=== PATIENT | male | born 1960 | race Caucasian/White ===

== ENCOUNTER 2016-05-18 09:51 | Outpatient (CLI) | payer MEDICAID | END 2016-05-18 09:52 | disposition home or self-care (01) | DX: E11.9 Type 2 diabetes mellitus without complications (principal) ==

== ENCOUNTER 2016-08-09 21:16 | Emergency (ER) | payer MEDICAID ==
[2016-08-09] MEDS ORDERED: KETOROLAC 60 MG/2 ML VIAL IM STA (23:00)
[2016-08-09] MEDS ORDERED: KETOROLAC 60 MG/2 ML VIAL ONE (23:07)
[2016-08-10] MEDS ORDERED: oxyCODONE/ACET 5/325 Prepack 4 PO STA (01:15)
[2016-08-10] MEDS ORDERED: CYCLOBENZAPRINE 10 MG Prepack 2 PO PRN (01:15)
[2016-08-10] MEDS ORDERED: CYCLOBENZAPRINE 10 MG Prepack 2 PO ONE (01:18)
[2016-08-10] MEDS ORDERED: oxyCODONE/ACET 5/325 Prepack 4 PO ONE (01:18)
== END 2016-08-10 01:27 | disposition home or self-care (01) ==
DX: M54.9 Dorsalgia, unspecified (principal); I10 Essential (primary) hypertension; E78.00 Pure hypercholesterolemia, unspecified; E11.42 Type 2 diabetes mellitus with diabetic polyneuropathy; G47.30 Sleep apnea, unspecified; I25.10 Atherosclerotic heart disease of native coronary artery without angina pectoris; F41.9 Anxiety disorder, unspecified; F31.9 Bipolar disorder, unspecified; K21.9 Gastro-esophageal reflux disease without esophagitis; Z87.891 Personal history of nicotine dependence; Z79.52 Long term (current) use of systemic steroids; Z95.5 Presence of coronary angioplasty implant and graft; Z79.82 Long term (current) use of aspirin; Z79.84 Long term (current) use of oral hypoglycemic drugs

== ENCOUNTER 2016-08-13 12:08 | Outpatient (CLI) | payer MEDICAID | END 2016-08-13 12:09 | disposition home or self-care (01) | DX: I25.10 Atherosclerotic heart disease of native coronary artery without angina pectoris (principal); R10.9 Unspecified abdominal pain; M25.50 Pain in unspecified joint; M54.5 Low back pain ==

== ENCOUNTER 2016-08-13 12:36 | Outpatient (CLI) | payer MEDICAID | END 2016-08-13 23:59 | disposition home or self-care (01) | DX: R10.9 Unspecified abdominal pain (principal); M25.50 Pain in unspecified joint; M54.5 Low back pain ==

== ENCOUNTER 2016-09-16 09:06 | Outpatient (CLI) | payer MEDICAID | END 2016-09-16 09:07 | disposition home or self-care (01) | DX: R10.12 Left upper quadrant pain (principal) ==

== ENCOUNTER 2016-09-17 08:51 | Outpatient (CLI) | payer MEDICAID ==
[2016-09-17] MEDS ORDERED: BARIUM SULFATE 1,900 ML BOTTLE PO SCH (11:00)
== END 2016-09-17 08:52 | disposition home or self-care (01) ==
DX: R10.12 Left upper quadrant pain (principal)
CPT/HCPCS: 74280; A9270

== ENCOUNTER 2016-09-28 18:05 | Outpatient (CLI) | payer MEDICAID | END 2016-09-28 18:06 | disposition home or self-care (01) | DX: M51.34 Other intervertebral disc degeneration, thoracic region (principal); M51.36 Other intervertebral disc degeneration, lumbar region ==

== ENCOUNTER 2016-11-22 10:05 | Outpatient (CLI) | payer MEDICAID | END 2016-11-22 10:06 | disposition home or self-care (01) | DX: E11.9 Type 2 diabetes mellitus without complications (principal) ==

== ENCOUNTER 2017-03-17 13:59 | Outpatient (CLI) | payer MEDICAID | END 2017-03-17 14:00 | disposition home or self-care (01) | LOC: SC 13:59 | PROVIDERS: ATTEND Nurse Practitioner Family | DX: G47.33 Obstructive sleep apnea (adult) (pediatric) (principal) | CPT/HCPCS: 99212; 99214 ==

== ENCOUNTER 2017-08-29 17:47 | Outpatient (CLI) | payer MEDICAID ==
[2017-08-29 18:07] LABS: CALCIUM 9.6 mg/dL (8.5-10.3); CREATININE 1.1 mg/dL (0.6-1.2)
[2017-08-29 18:18] LABS: HB2 TOTAL 14.8 g/dL; HEMOGLOBIN A1C 0.87 g/dL; HEMOGLOBIN A1C % 7.5 % (4.6-6.2)
== END 2017-08-29 17:48 | disposition home or self-care (01) ==
LOC: LAB 17:47
PROVIDERS: ATTEND Nurse Practitioner Family
DX: E11.9 Type 2 diabetes mellitus without complications (principal)
CPT/HCPCS: 36415; 80048; 83036

== ENCOUNTER 2018-04-07 10:40 | Outpatient (CLI) | payer OTHER ==
[2018-04-07 17:38] LABS: BASOPHILS # (AUTO) 0.1 10^3/uL (0.0-0.1); BASOPHILS % (AUTO) 1.4 %; EOSINOPHILS # (AUTO) 0.3 10^3/uL (0.0-0.7); EOSINOPHILS % (AUTO) 4.1 %; HGB - HEMOGLOBIN 12.9 g/dL (14.0-18.0); LYMPHOCYTES # (AUTO) 2.3 10^3/uL (1.5-3.5); LYMPHOCYTES % (AUTO) 32.1 %; MEAN CORPUSCULAR HEMOGLOBIN 30.6 pg (27.0-31.0); MEAN CORPUSCULAR HGB CONC 33.3 g/dL (32.0-36.0); MEAN PLATELET VOLUME 8.3 fL (7.4-11.4); MONOCYTES # (AUTO) 0.6 10^3/uL (0.0-1.0); NEUTROPHILS # (AUTO) 3.9 10^3/uL (1.5-6.6); NEUTROPHILS % (AUTO) 54.4 %; PLT - PLATELET COUNT 299 10^3/uL (130-450); RED BLOOD COUNT 4.22 10^6/uL (4.70-6.10); RED CELL DISTRIBUTION WIDTH 13.6 % (12.0-15.0); WHITE BLOOD COUNT 7.3 x10^3/uL (4.8-10.8)
[2018-04-07 17:51] LABS: HB2 TOTAL 13.8 g/dL; HEMOGLOBIN A1C 0.61 g/dL; HEMOGLOBIN A1C % 6.2 % (4.6-6.2)
== END 2018-04-07 10:41 | disposition home or self-care (01) ==
LOC: LAB.F 10:40
PROVIDERS: ATTEND Nurse Practitioner Family
DX: E11.9 Type 2 diabetes mellitus without complications (principal); I10 Essential (primary) hypertension; E78.5 Hyperlipidemia, unspecified; Z12.5 Encounter for screening for malignant neoplasm of prostate; I25.10 Atherosclerotic heart disease of native coronary artery without angina pectoris
CPT/HCPCS: 36415; 80053; 80061; 82043; 83036; 83721; 84153; 84443; 85025

== ENCOUNTER 2018-05-15 15:46 | Outpatient (CLI) | payer OTHER | END 2018-05-15 15:47 | disposition home or self-care (01) | LOC: SC 15:46 | PROVIDERS: ATTEND Nurse Practitioner Family | DX: G47.33 Obstructive sleep apnea (adult) (pediatric) (principal) | CPT/HCPCS: 99212; 99214 ==

== ENCOUNTER 2018-09-08 07:57 | Outpatient (CLI) | payer OTHER ==
[2018-09-08 11:32] LABS: ALBUMIN 4.1 g/dL (3.2-5.5); ALBUMIN/GLOBULIN RATIO 1.4 (1.0-2.2); ALKALINE PHOSPHATASE 59 IU/L (42-121); ALT ALANINE AMINOTRANSFERASE 40 IU/L (10-60); AST ASPARTATE AMINOTRANSFERASE 46 IU/L (10-42); BILIRUBIN,TOTAL 0.6 mg/dL (0.2-1.0); BUN - BLOOD UREA NITROGEN 24 mg/dL (6-20); CALCIUM 9.1 mg/dL (8.5-10.3); CARBON DIOXIDE - CO2 25 mmol/L (21-32); CHLORIDE 108 mmol/L (101-111); CHOL/HDL RATIO 3.5 (<5.0); CHOLESTEROL 156 mg/dL; CREATININE 0.9 mg/dL (0.6-1.2); GFR - MDRD 87 (>89); GLUCOSE 136 mg/dL (70-100); HDL CHOLESTEROL 45 mg/dL; LDL CHOLESTEROL,CALCULATED 87 mg/dL; LDL/HDL RATIO 1.9 (<3.6); SODIUM 141 mmol/L (135-145); VLDL CHOLESTEROL 24 mg/dL
[2018-09-08 12:05] LABS: HB2 TOTAL 13.6 g/dL; HEMOGLOBIN A1C 0.65 g/dL; HEMOGLOBIN A1C % 6.5 % (4.6-6.2)
== END 2018-09-08 07:58 | disposition home or self-care (01) ==
LOC: LAB.F 07:57
PROVIDERS: ATTEND Internal Medicine
DX: E78.5 Hyperlipidemia, unspecified (principal); E11.9 Type 2 diabetes mellitus without complications; Z12.5 Encounter for screening for malignant neoplasm of prostate
CPT/HCPCS: 36415; 80053; 80061; 83036; 83721; 84153

== ENCOUNTER 2018-11-19 15:09 | Emergency (ER) | payer OTHER ==
[2018-11-19 15:17] VITALS: BP 137/81
--- NOTE | 2018-11-19 15:20 | ED Physician Documentation ---
PD HPI SKIN - Stated complaint Stated Complaint: ds - Chief complaint Chief Complaint: General - History obtained from History obtained from: Patient - History of Present Illness Timing - onset: How many weeks ago (2) Timing - duration: Weeks (2) Timing - details: Gradual onset, Still present Location: RLE (middle toe nailbed corner) Quality / character: Painful, Draining (has redness and swelling at nailbed corner with some drainage. He is soaking it and using some OTC ointment, but still not improved. Worse red and tender the past 1-2 days.) Associated symptoms: No: Fever, Myalgias, N/V/D Similar symptoms before: Has not had sx before Recently seen: Not recently seen Review of Systems Constitutional: reports: Myalgias (having some pain of toe and feeling into the distal foot, without redness nor streaking noted.). denies: Fever, Chills PD PAST MEDICAL HISTORY - Past Medical History Cardiovascular: Hypertension, High cholesterol, Coronary artery disease Respiratory: Sleep apnea, CPAP use Endocrine/Autoimmune: Type 2 diabetes GI: GERD, Ulcers, Pancreatitis, Other : Nocturia HEENT: Other Psych: Depression, Anxiety, Bipolar disorder, Other Musculoskeletal: Osteoarthritis, Fibromyalgia, Fatigue, Chronic back pain Derm: Other - Past Surgical History Past Surgical History: Yes Cardiovascular: Coronary stent HEENT: Tonsil/Adenoidectomy - Present Medications Home Medications: Ambulatory Orders Medication Instructions Recorded Confirmed Aspirin [Sandip Chewable Aspirin] 81 mg PO DAILY 01/23/14 06/05/14 Baclofen 10 mg PO DAILY 01/23/14 06/05/14 Clonazepam 0.5 mg PO DAILY 01/23/14 06/05/14 Glyburide 5 mg PO BID 01/23/14 06/05/14 Hydrocodone/Acetaminophen 1 tab PO DAILY 01/23/14 06/05/14 [Hydrocodone-APAP 5-325] Lisinopril 5 mg PO DAILY 01/23/14 06/05/14 [place] 300 mg PO DAILY 01/23/14 06/05/14 Metformin HCl [Metformin ER 1,000 mg PO QDBREAKFAST 01/23/14 06/05/14 Osmotic] Metoprolol Tartrate 25 mg PO DAILY 01/23/14 06/05/14 Pantoprazole Sodium [Protonix] 20 mg PO DAILY 01/23/14 06/05/14 Simvastatin 20 mg PO DAILY 01/23/14 06/05/14 Gabapentin [Neurontin] 600 mg PO BID 02/01/14 06/05/14 Prednisone 5 mg PO DAILY 02/01/14 06/05/14 Bupropion HCl [Bupropion HCl Sr] 300 mg PO DAILY 04/09/14 06/05/14 Folic Acid 1 mg PO DAILY 04/09/14 06/05/14 Indomethacin 25 mg PO BID PRN 04/09/14 06/05/14 Metformin HCl 500 mg PO QPM 04/09/14 06/05/14 Methotrexate 2.5 mg PO Q7D 04/09/14 06/05/14 OXcarbazepine [Oxcarbazepine] 600 mg PO BID 06/05/14 06/05/14 Topiramate 25 mg PO Q7D 06/05/14 06/05/14 Methocarbamol [Robaxin] 500 mg PO Q6H PRN #14 tablet 08/10/16 oxyCODONE/ACET 5/325 [Percocet 5 2 each PO Q6H PRN #14 tablet 08/10/16 mg/325 mg] Doxycycline Hyclate 100 mg PO BID #14 capsule 11/19/18 Mupirocin 1 applic TP TID #15 g 11/19/18 - Allergies Allergies/Adverse Reactions: Allergies Allergy/AdvReac Type Severity Reaction Status Date / Time No Known Drug Allergies Allergy Verified 02/01/14 08:19 - Social History Does the pt smoke?: No Smoking Status: Never smoker Does the pt drink ETOH?: Yes Does the pt have substance abuse?: No - Immunizations Immunizations are current?: No - POLST Patient has POLST: No PD ED PE NORMAL - Vitals Vital signs reviewed: Yes - General General: Alert and oriented X 3, No acute distress, Well developed/nourished - Derm Derm: Normal color, Warm and dry - Extremities Extremities: Other (right middle toe with medial side corner having redness, focal swelling and some white coloring of the skin at very corner 2-3 mm. Appears slight ingrown nail at that corner. ) - Neuro Neuro: Alert and oriented X 3, No motor deficit, Normal speech, Other (less sensation of toes in general (which he relates to his diabetes and longer term)) Results - Vitals Vitals: Vital Signs - 24 hr 11/19/18 15:14 Temperature 36.8 C Heart Rate 85 Respiratory 18 Rate Blood Pressure 137/81 H O2 Saturation 100 Oxygen O2 Source Room air PD MEDICAL DECISION MAKING - ED course Complexity details: considered differential (there is paronychia and slight ingrown nail at corner of non-great toe. Will need just quick scissoring of corner of nail without I&D per se. I felt the quick scissor without having to terry per se, would be less painful than block/local. I trimmed nail corner from the infected area with moment of painfulness then done. ), d/w patient Departure - Departure Disposition: Home, Self Care Clinical Impression: Paronychia due to ingrown nail Cellulitis of toe Qualifiers: Laterality: right Qualified Code(s): L03.031 - Cellulitis of right toe Condition: Stable Record reviewed to determine appropriate education?: Yes Instructions: ED Paronychia Ch Follow-Up: Stanley Garcia MD [Primary Care Provider] - Prescriptions: Doxycycline Hyclate 100 mg PO BID #14 capsule Mupirocin 1 applic TP TID #15 g Comments: Continue soaks for the toe or cleaning with warm water 2-3 times a day and apply mupirocin antibiotic ointment. You can use a Band-Aid to cover and protect the end of the toe. It does look like infection is down into the tissue of the toe as well so use doxycycline oral antibiotic twice daily for a week. Tylenol ibuprofen as needed for pains. Recheck if not improved over the next several days to a week or if you have recurrent infection in the near future. Discharge Date/Time: 11/19/18 16:11
[2018-11-19] MEDS ORDERED: DOXYCYCLINE 100 MG TABLET PO STA (15:40)
[2018-11-19] MEDS ORDERED: MUPIROCIN 2% OINT 1 GM TOP STA (15:40)
== END 2018-11-19 16:11 | disposition home or self-care (01) ==
LOC: ED 15:09
DX: L03.031 Cellulitis of right toe (principal); I10 Essential (primary) hypertension; E11.9 Type 2 diabetes mellitus without complications; Z79.84 Long term (current) use of oral hypoglycemic drugs; I25.10 Atherosclerotic heart disease of native coronary artery without angina pectoris; Z95.5 Presence of coronary angioplasty implant and graft
CPT/HCPCS: 99283; 99284; A9270

== ENCOUNTER 2019-03-01 07:44 | Outpatient (CLI) | payer OTHER ==
--- NOTE | 2019-03-01 17:16 | CARDIAC PROCEDURE NOTE ---
DATE OF SERVICE: 03/01/2019 Physician: Alyson Lovett MD, [facility] INDICATION: Hx of CAD, hypertension and diabetes. CARDIAC RISK FACTORS: Male gender, hypertension, diabetes, family history of heart disease. DESCRIPTION OF PROCEDURE: After signing informed consent, patient underwent a Onofre-protocol treadmill stress test. No imaging was ordered with this test. RESTING HEART RATE: 82. PEAK HEART RATE: 138 (85% predicted maximum heart rate for age). RESTING BLOOD PRESSURE: 130/80. PEAK BLOOD PRESSURE: 154/70. The patient exercised for 8 minutes and 46 seconds on a Onofre-protocol treadmill stress test. He achieved a peak heart rate of 138, which is 85% predicted maximum heart rate and 10.2 METS. The patient had no chest pain and described minimal shortness of breath. His oxygen saturation was 97% on room air at peak. His perceived exertion level was 14/20 on the Monse scale; exercise was stopped because of perceived exertion and achieving target heart rate. RESTING EKG: Normal sinus rhythm, borderline LVH voltage. EKG AT PEAK: Mild flattening of inferolateral T waves. SUMMARY 1. Good exercise tolerance. 2. Nonspecific EKG changes for ischemia during this treadmill stress test. 3. This patient's cardiac risk is low based on EKG changes and level of stress achieved. 4. No imaging was ordered with this test. cc: ASHA Ribeiro TD: 03/01/2019 16:27 MTDD
== END 2019-03-01 07:45 | disposition home or self-care (01) ==
LOC: DI 07:44
PROVIDERS: ATTEND Registered Nurse
DX: I25.10 Atherosclerotic heart disease of native coronary artery without angina pectoris (principal); E11.40 Type 2 diabetes mellitus with diabetic neuropathy, unspecified; I10 Essential (primary) hypertension; Z82.49 Family history of ischemic heart disease and other diseases of the circulatory system
CPT/HCPCS: 93017

== ENCOUNTER 2019-07-16 07:08 | Outpatient (CLI) | payer BC ==
[2019-07-16 10:41] LABS: BASOPHILS # (AUTO) 0.1 10^3/uL (0.0-0.1); BASOPHILS % (AUTO) 1.6 %; EOSINOPHILS # (AUTO) 0.3 10^3/uL (0.0-0.7); EOSINOPHILS % (AUTO) 3.8 %; HGB - HEMOGLOBIN 12.9 g/dL (14.0-18.0); LYMPHOCYTES # (AUTO) 2.2 10^3/uL (1.5-3.5); LYMPHOCYTES % (AUTO) 27.7 %; MEAN CORPUSCULAR HEMOGLOBIN 28.7 pg (27.0-31.0); MEAN CORPUSCULAR HGB CONC 30.9 g/dL (32.0-36.0); MEAN CORPUSCULAR VOLUME 92.9 fL (80.0-94.0); MEAN PLATELET VOLUME 10.2 fL (7.4-11.4); MONOCYTES # (AUTO) 0.9 10^3/uL (0.0-1.0); MONOCYTES % (AUTO) 11.2 %; NEUTROPHILS # (AUTO) 4.5 10^3/uL (1.5-6.6); NEUTROPHILS % (AUTO) 55.3 %; PLT - PLATELET COUNT 299 10^3/uL (130-450); WHITE BLOOD COUNT 8.1 x10^3/uL (4.8-10.8)
[2019-07-16 10:56] LABS: ALBUMIN 4.2 g/dL (3.2-5.5); ALBUMIN/GLOBULIN RATIO 1.4 (1.0-2.2); ALKALINE PHOSPHATASE 52 IU/L (42-121); ALT ALANINE AMINOTRANSFERASE 38 IU/L (10-60); AST ASPARTATE AMINOTRANSFERASE 25 IU/L (10-42); BILIRUBIN,TOTAL 0.6 mg/dL (0.2-1.0); BUN - BLOOD UREA NITROGEN 27 mg/dL (6-20); CALCIUM 9.2 mg/dL (8.5-10.3); CARBON DIOXIDE - CO2 25 mmol/L (21-32); CHLORIDE 105 mmol/L (101-111); CHOL/HDL RATIO 3.6 (<5.0); CHOLESTEROL 153 mg/dL; CREATININE 1.1 mg/dL (0.6-1.2); GFR - MDRD 69 (>89); GLUCOSE 115 mg/dL (70-100); HDL CHOLESTEROL 42 mg/dL; LDL CHOLESTEROL,CALCULATED 91 mg/dL; LDL/HDL RATIO 2.2 (<3.6); SODIUM 137 mmol/L (135-145); TOTAL PROTEIN 7.1 g/dL (6.7-8.2); VLDL CHOLESTEROL 20 mg/dL
[2019-07-16 11:00] LABS: HB2 TOTAL 13.6 g/dL; HEMOGLOBIN A1C 0.75 g/dL; HEMOGLOBIN A1C % 7.2 % (4.6-6.2)
[2019-07-16 11:22] LABS: MICROALBUM/CREATININE RATIO,UR 5.7 ug/mg (<30.0); MICROALBUMIN,URINE 1.6 mg/dL (0-300.0)
== END 2019-07-16 07:09 | disposition home or self-care (01) ==
LOC: LAB.S 07:08
PROVIDERS: ATTEND Registered Nurse
DX: E11.40 Type 2 diabetes mellitus with diabetic neuropathy, unspecified (principal); I10 Essential (primary) hypertension; I25.10 Atherosclerotic heart disease of native coronary artery without angina pectoris; E78.5 Hyperlipidemia, unspecified
CPT/HCPCS: 36415; 80053; 80061; 82043; 82570; 83036; 83721; 84443; 85025

== ENCOUNTER 2019-11-12 08:05 | Outpatient (CLI) | payer BC ==
[2019-11-12 15:39] LABS: CALCIUM 9.1 mg/dL (8.5-10.3); CREATININE 0.9 mg/dL (0.6-1.2)
[2019-11-12 17:07] LABS: HB2 TOTAL 13.2 g/dL; HEMOGLOBIN A1C 0.86 g/dL; HEMOGLOBIN A1C % 8.1 % (4.6-6.2)
== END 2019-11-12 08:06 | disposition home or self-care (01) ==
LOC: LAB.S 08:05
PROVIDERS: ATTEND Registered Nurse
DX: E11.9 Type 2 diabetes mellitus without complications (principal)
CPT/HCPCS: 36415; 80048; 83036

== ENCOUNTER 2019-12-28 08:31 | Outpatient (CLI) | payer BC ==
--- NOTE | 2019-12-28 09:24 | SLEEP CARE CONSULTATION ---
Information from patient questionnaire entered by Mariam Caldwell. I have reviewed and concur with the information entered by Mariam Caldwell. This document represents the service I personally performed and the decisions made by me, Toshia Morgan ARNP. History of Present Illness Service Date and Time: 12/28/2019 0831 Previous diagnosis: Very Severe, Obstructive Sleep Apnea-Hypopnea Syndrome, Central Sleep Apnea-Hypopnea Syndrome AHI: 83.8 (in 2006) Reason for follow up: annual (last seen 2018) Equipment type: CPAP Equipment obtained from: [employer] (not getting supplies as ordered, has got nothing for last year; would like to change) Mask style: Full face Backup mask available: Yes (no, keep mask when changed next time) Last cushion change: last year Prior sleep studies: Yes Year and Where: 2006 - [facility] in [place], [place] Type of Sleep Study: Polysomnography HPI additional information: MICHAEL SHANE was diagnosed to have very severe, AHI 83.8, obstructive sleep apnea-hypopnea syndrome and returned today for CPAP therapy annual follow-up. He has not been hearing from [employer] and has not got any supplies for the last year. He was sent a multi-pack of face mask sizes at onset of using their services and then did not hear back from them for supplies. 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 He is diabetic and they just put him on Januvia which has brought his blood sugars down. His last A1C was 8.1 so they added this last medication to help reduce it. He takes metformin, glyburide, simvastatin, lisinopril, metoprolol and gabapentin as well as some OTC vitamins. CPAP Compliance Data Compliance data discussion: Patient's chip was unreadable. He will bring in his machine for us to download his compliance information later today. Subjective Patient concerns: reports: aerophagia (feels bloated and is taking Nexium, not helping; unsure about burping), air blowing in eyes, mask leak noise, condensation in mask/hose (doesn't use humidifier, doesn't like it and it "bothers his lungs"), nasal congestion, dry mouth, nose, throat (dry mouth, but does not like to use humidifier), other (headache). denies: mask discomfort, epistaxis Observed to snore while using device: No Current pressure setting perceived as: comfortable On therapy, patient: reports: sleeping better, awakening more refreshed, being more awake and alert during the day, more rested overall. denies: drowsiness while driving Initial [place] Sleepiness Scale score: 18 (in 2008) Current [place] Sleepiness Scale score: 8 Allergies and Home Medications Drug allergies reviewed: Yes (NKDA) Home medication list reviewed: Yes (Januvia added) Review of Systems Review of systems same as previous: Yes (more sinus and body pains since last appointment) Physical Exam Heart Rate: 73 O2 Saturation: 97 Height: 5 ft 1 in Weight: 231 lb 3.2 oz Body Mass Index: 43.7 BMI Classification: Morbidly Obese Impression and Plan 1. Obstructive Sleep Apnea-Hypopnea Syndrome, very severe, with unknown treatment compliance and unknown apnea control. Patient's chip was unreadable and I advised patient to bring in his machine so we may download compliance information. He agreed to bring in later today. On CPAP therapy, there is improved sleep quality and feels more rested overall. Patient has been having difficulty getting supplies from his DME supplier [employer]. He states his headgear is falling apart and he is getting air leaking into his eyes and mask leaking noise. He has had more headaches recently. He continues to use the CPAP but would like to get updated supplies. Patient's apnea severity and rationale for treatment to reduce apnea, improve sleep quality and reduce cardiovascular and cerebrovascular events was reviewed. I also reviewed the benefit of consistent device use of CPAP for hypertension, cardiac disease, and diabetes. Patient has gained weight. Currently patients BMI is 41.1. Obesity increases the risk of apnea, CPAP pressure requirements and overall health risks especially cardiovascular and diabetes. Thus patient is encouraged to continue to try to lose weight. He was encouraged to focus on eating nutritionally dense foods, reduced processed foods, sugar and animal products. A diet consultation can be helpful in achieving optimal weight loss goals. The BMI chart was revi ewed. Patient encouraged to discuss their weight loss goals with their PCP and consider a referral to a color buffer. Patient to bring in machine so we may obtain compliance information Once compliance is verified we will continue auto CPAP pressure at 14-18 cm H2O. Notify me if snoring with the mask or feeling that the pressure is too much or too little. Continue to try to to lose weight. Transfer to new DME supplier and update supplies once we have compliance information. Return for follow-up in one year, or sooner if concerns arise. Visit Type: In Office Time Spent with Patient (minutes): 30 Provider Statement: I spent 100% of the Face to Face Visit with the patient with greater than 50% spent counseling the patient and coordination of care.
== END 2019-12-28 08:32 | disposition home or self-care (01) ==
LOC: SC 08:31
PROVIDERS: ATTEND Nurse Practitioner Family
DX: G47.33 Obstructive sleep apnea (adult) (pediatric) (principal); E66.01 Morbid (severe) obesity due to excess calories; Z68.41 Body mass index [BMI] 40.0-44.9, adult
CPT/HCPCS: 99212; 99213

== ENCOUNTER 2020-06-27 09:23 | Outpatient (CLI) | payer BC ==
[2020-06-27 15:42] LABS: BASOPHILS # (AUTO) 0.1 10^3/uL (0.0-0.1); BASOPHILS % (AUTO) 1.5 %; EOSINOPHILS # (AUTO) 0.3 10^3/uL (0.0-0.7); EOSINOPHILS % (AUTO) 3.5 %; HGB - HEMOGLOBIN 13.3 g/dL (14.0-18.0); LYMPHOCYTES # (AUTO) 1.8 10^3/uL (1.5-3.5); LYMPHOCYTES % (AUTO) 24.1 %; MEAN CORPUSCULAR HEMOGLOBIN 29.4 pg (27.0-31.0); MEAN CORPUSCULAR HGB CONC 31.1 g/dL (32.0-36.0); MEAN CORPUSCULAR VOLUME 94.5 fL (80.0-94.0); MONOCYTES # (AUTO) 0.6 10^3/uL (0.0-1.0); MONOCYTES % (AUTO) 8.5 %; NEUTROPHILS # (AUTO) 4.6 10^3/uL (1.5-6.6); NEUTROPHILS % (AUTO) 62.1 %; PLT - PLATELET COUNT 288 10^3/uL (130-450); RED BLOOD COUNT 4.53 10^6/uL (4.70-6.10); RED CELL DISTRIBUTION WIDTH 12.9 % (12.0-15.0); WHITE BLOOD COUNT 7.4 x10^3/uL (4.8-10.8)
[2020-06-27 16:05] LABS: ALBUMIN 4.3 g/dL (3.2-5.5); ALBUMIN/GLOBULIN RATIO 1.7 (1.0-2.2); ALKALINE PHOSPHATASE 48 IU/L (42-121); ALT ALANINE AMINOTRANSFERASE 26 IU/L (10-60); AST ASPARTATE AMINOTRANSFERASE 18 IU/L (10-42); BILIRUBIN,TOTAL 0.4 mg/dL (0.2-1.0); BUN - BLOOD UREA NITROGEN 20 mg/dL (6-20); CALCIUM 9.4 mg/dL (8.5-10.3); CARBON DIOXIDE - CO2 26 mmol/L (21-32); CHLORIDE 105 mmol/L (101-111); CHOL/HDL RATIO 3.1 (<5.0); CHOLESTEROL 130 mg/dL; CREATININE 0.8 mg/dL (0.6-1.2); GLUCOSE 120 mg/dL (70-100); HDL CHOLESTEROL 42 mg/dL; LDL CHOLESTEROL,CALCULATED 70 mg/dL; LDL/HDL RATIO 1.7 (<3.6); TOTAL PROTEIN 6.9 g/dL (6.7-8.2); VLDL CHOLESTEROL 18 mg/dL
[2020-06-27 16:08] LABS: MICROALBUM/CREATININE RATIO,UR 7.9 ug/mg (<30.0); MICROALBUMIN,URINE 0.7 mg/dL (0-300.0)
[2020-06-27 20:28] LABS: HEMOGLOBIN A1c% 6.7 % (4.27-6.07)
== END 2020-06-27 09:24 | disposition home or self-care (01) ==
LOC: LAB.S 09:23
PROVIDERS: ATTEND Registered Nurse
DX: E11.40 Type 2 diabetes mellitus with diabetic neuropathy, unspecified (principal); I25.10 Atherosclerotic heart disease of native coronary artery without angina pectoris; E78.5 Hyperlipidemia, unspecified; G47.39 Other sleep apnea
CPT/HCPCS: 36415; 80053; 80061; 82043; 82570; 83036; 83721; 84153; 84443; 85025

== ENCOUNTER 2020-07-15 07:00 | Outpatient (CLI) | payer BC | END 2020-07-15 23:59 | disposition home or self-care (01) | LOC: LAB.S 07:00 | PROVIDERS: ATTEND Physician Assistant | DX: B34.9 Viral infection, unspecified (principal); Z20.822 Contact with and (suspected) exposure to COVID-19 ==

== ENCOUNTER 2020-12-20 09:12 | Outpatient (CLI) | payer BC ==
[2020-12-20 16:02] LABS: CREATININE,URINE 161.5 mg/dL; MICROALBUMIN,URINE 0.8 mg/dL (0-300.0)
[2020-12-20 16:16] LABS: CALCIUM 9.1 mg/dL (8.5-10.3); CREATININE 0.9 mg/dL (0.6-1.2); POTASSIUM 4.3 mmol/L (3.5-5.0)
[2020-12-20 20:22] LABS: ESTIMATED AVERAGE GLUCOSE 154 mg/dL (70-100)
== END 2020-12-20 09:13 | disposition home or self-care (01) ==
LOC: LAB.S 09:12
PROVIDERS: ATTEND Registered Nurse
DX: E11.9 Type 2 diabetes mellitus without complications (principal)
CPT/HCPCS: 36415; 80048; 82043; 82570; 83036

== ENCOUNTER 2020-12-26 13:59 | Outpatient (CLI) | payer BC ==
--- NOTE | 2020-12-26 15:02 | SLEEP CARE CONSULTATION ---
Information from patient questionnaire entered by Mariam Caldwell. I have reviewed and concur with the information entered by Mariam Caldwell. This document represents the service I personally performed and the decisions made by me, Toshia Morgan ARNP. History of Present Illness Service Date and Time: 12/26/2020 1359 Previous diagnosis: Very Severe, Obstructive Sleep Apnea-Hypopnea Syndrome, Central Sleep Apnea-Hypopnea Syndrome AHI: 83.8 (in 2006) Reason for follow up: annual (last seen 12/2019) Equipment type: CPAP Equipment obtained from: [employer] (he is getting bills for his supplies and not always getting supplies) Mask style: Full face Backup mask available: No (will keep old mask when replaced) Last cushion change: not sure Prior sleep studies: Yes Year and Where: 2006 - [facility] in [place], [place] HPI additional information: MICHAEL SHANE was diagnosed to have very severe, AHI 83.8, obstructive/central sleep apnea-hypopnea syndrome and returned today for CPAP therapy annual follow- up. CPAP Compliance Data - Data Reviewed with Patient Average duration of nightly device use: 7 hr 21 min Compliance rate %: 86.1 (180 days) Current pressure setting (cmH2O): 8-12 Humidity settin Average residual AHI: 3.6 Average large leak: 8 min 27 sec Subjective Missed days of use due to: reports: other (uses other machine when on the couch for a nap) Patient concerns: reports: aerophagia (not very often), mask discomfort (needs replaced; headgear is stretched out; has to over tighten), air blowing in eyes, mask leak noise, nasal congestion (has allergies so this is off/on; not necessarily due to CPAP), dry mouth, nose, throat, other (Headache, snore while using device). denies: condensation in mask/hose, epistaxis Observed to snore while using device: Yes Current pressure setting perceived as: comfortable On therapy, patient: reports: sleeping better, awakening more refreshed, being more awake and alert during the day, more rested overall. denies: drowsiness while driving Initial [place] Sleepiness Scale score: 18 (in 2008) Current [place] Sleepiness Scale score: 3 Allergies and Home Medications Home medication list reviewed: Yes (no changes) Review of Systems Review of systems same as previous: Yes (no changes) Physical Exam Heart Rate: 79 O2 Saturation: 97 Height: 5 ft 1 in Weight: 221 lb Body Mass Index: 41.7 BMI Classification: Morbidly Obese Impression and Plan 1. Obstructive/Central Sleep Apnea-Hypopnea Syndrome, very severe, with good treatment compliance and good apnea control. On CPAP therapy, the patient has better sleep quality and is more rested overall. Patient has not been getting supplies from current DME company. He would like to transfer to another DME so he may obtain supplies. I will have my public relations coordinator inform of DME options. Patient advised to contact this office if further supply problems. I discussed with patient that [employer] has a recall on several devices like the patients machine. Patient was encouraged to register their device online with [employer] for the recall to see if their device is affected. If their device is affected they should start a claim. Patient denies any black particles seen in machine or hoses, any unusual odors coming from device. Patient has not experienced any physical symptoms such as upper airway irritation, headache, skin or eye irritation, asthma, nausea/vomiting, difficulty breathing or chest pain. Patient informed that they may use an inline CPAP filter that they can obtain online to reduce chance of any particles being inhaled or ingested. We discussed thoroughly the health risks of not using the CPAP versus continuing use with the filter in place. If patient is not able to sleep due to waking up choking, gasping for air or other respiratory distress that they may decide to continue using it until it is either replaced or repaired. Since the patients current machine is at least 5 years old the patient has opted to update their device with a device that is not on the recall. A [facility] prescription will be made. Compliance guidelines for new device and follow up discussed. Patient voiced understanding and agreement with plan. Patient's apnea severity and rationale for treatment to reduce apnea, improve sleep quality and reduce cardiovascular and cerebrovascular events was reviewed. I also reviewed the benefit of consistent device use of CPAP for hypertension, cardiac disease, and diabetes. * Continue auto CPAP pressure at 8-12 cmH2O * Transfer DME * Update device and supplies * Notify me if snoring with mask or feeling that the pressure is too much or too little * Attempt to lose weight * Call this office if any problems using CPAP * Return for follow up one month after obtaining new device, or sooner if concerns arise Counseling Topics: Spare mask, Weight loss health impact Visit Type: In Office Time Spent with Patient (minutes): 36 Provider Statement: I spent 100% of the Face to Face Visit with the patient with greater than 50% spent counseling the patient and coordination of care.
== END 2020-12-26 14:00 | disposition home or self-care (01) ==
LOC: SC 13:59
PROVIDERS: ATTEND Nurse Practitioner Family
DX: G47.31 Primary central sleep apnea (principal); G47.33 Obstructive sleep apnea (adult) (pediatric); E66.01 Morbid (severe) obesity due to excess calories; Z68.41 Body mass index [BMI] 40.0-44.9, adult
CPT/HCPCS: 99212; 99214

== ENCOUNTER 2021-05-27 07:14 | Outpatient (CLI) | payer BC, OTHER ==
[2021-05-27 14:32] LABS: CHOL/HDL RATIO 3.8 (<5.0); CHOLESTEROL 145 mg/dL; HDL CHOLESTEROL 38 mg/dL; LDL CHOLESTEROL,CALCULATED 74 mg/dL; LDL/HDL RATIO 1.9 (<3.6); TRIGLYCERIDES 165 mg/dL; VLDL CHOLESTEROL 33 mg/dL
[2021-05-27 14:48] LABS: MICROALBUM/CREATININE RATIO,UR 17.2 ug/mg (<30.0); MICROALBUMIN,URINE 1.7 mg/dL (0-300.0)
[2021-05-27 20:07] LABS: ESTIMATED AVERAGE GLUCOSE 163 mg/dL (70-100); HEMOGLOBIN A1c% 7.3 % (4.27-6.07)
== END 2021-05-27 07:15 | disposition home or self-care (01) ==
LOC: LAB.S 07:14
PROVIDERS: ATTEND Registered Nurse
DX: E11.39 Type 2 diabetes mellitus with other diabetic ophthalmic complication (principal)
CPT/HCPCS: 36415; 80061; 82043; 82570; 83036; 83721

== ENCOUNTER 2021-07-19 12:18 | Outpatient (CLI) | payer OTHER ==
--- NOTE | 2021-07-19 12:38 | XRAY Report ---
PROCEDURE: Shoulder 2 View RT INDICATIONS: RIGHT SHOULDER PAIN TECHNIQUE: 3 views of the shoulder were acquired. COMPARISON: None. FINDINGS: Bones: No fractures or dislocations. No suspicious bony lesions. Visualized ribs appear intact. Soft tissues: No suspicious soft tissue calcifications. IMPRESSION: No evidence acute bony abnormality of the right shoulder. If clinical suspicion and/or symptoms persist, further assessment with repeat plain films or advanced imaging (e.g., CT, MRI, or bone scan) may be helpful for further assessment. Reviewed by: Elieser Gray MD on 07/19/2021 11:36 AM [facility] Approved by: Elieser Gray MD on 07/19/2021 11:36 AM [facility] Station ID: [id number]
== END 2021-07-19 23:59 | disposition home or self-care (01) ==
LOC: DI.N 12:18
PROVIDERS: ATTEND Family Medicine
DX: M25.511 Pain in right shoulder (principal)

== ENCOUNTER 2021-09-10 08:00 | Outpatient (CLI) | payer OTHER ==
--- NOTE | 2021-09-10 20:52 | XRAY Report ---
PROCEDURE: Chest 2 View X-Ray INDICATIONS: CONGESTION/COUGH TECHNIQUE: 2 view(s) of the chest. COMPARISON: None. FINDINGS: Surgical changes and devices: None. Lungs and pleura: No pleural effusions or pneumothorax. Lungs are clear. Mediastinum: Mediastinal contours are normal. Heart size is normal. Bones and chest wall: No suspicious bony abnormalities. Soft tissues appear unremarkable. IMPRESSION: No acute cardiopulmonary process demonstrated radiographically. Reviewed by: Nikhil Pollack MD on 09/10/2021 8:50 PM PDT Approved by: Nikhil Pollack MD on 09/10/2021 8:50 PM PDT Station ID: [id number]
== END 2021-09-10 23:59 | disposition home or self-care (01) ==
LOC: DI.S 08:00
PROVIDERS: ATTEND Physician Assistant Medical
DX: R06.02 Shortness of breath (principal); R05.1 Acute cough

== ENCOUNTER 2021-10-25 15:04 | Outpatient (CLI) | payer OTHER ==
--- NOTE | 2021-10-25 17:48 | XRAY Report ---
PROCEDURE: Lumbar Spine Complete INDICATIONS: LOW BACK PAIN,UNSPECIFIED TECHNIQUE: 5 views of the lumbar spine were acquired bilateral oblique views. COMPARISON: 09/28/2016 FINDINGS: Bones: 5 [id number] vertebrae are present. No vertebral body compression fractures. No suspic ious bony lesions. On oblique images, no pars defects are seen. Minimal dextroconvex scoliotic curvature is seen. No significant AP alignment abnormality can be see n. There is moderate disc space narrowing seen at L4-L5 and at L5-S1. Facet arthropathy is seen, w hich is most prominent inferiorly. Soft tissues: Overlying bowel gas pattern is normal. No suspicious soft tissue calcifications. IMPRESSION: Focal lower lumbar spine degenerative changes are seen, which have progressed compared to 2017. If it would be helpful for clinical management decision making, please consider a dedicated, schedule d lumbar MRI for further evaluation (assuming that there is no contraindication). Minimal dextroconvex scoliotic curvature can be seen. Reviewed by: Shemar Ty MD on 10/25/2021 4:46 PM [facility] Approved by: Shemar Ty MD on 10/25/2021 4:46 PM [facility] Station ID: [id number]
== END 2021-10-25 15:05 | disposition home or self-care (01) ==
LOC: DI 15:04
PROVIDERS: ATTEND Nurse Practitioner
DX: M47.816 Spondylosis without myelopathy or radiculopathy, lumbar region (principal)

== ENCOUNTER 2022-01-22 08:36 | Outpatient (CLI) | payer OTHER ==
--- NOTE | 2022-01-22 09:12 | SLEEP CARE CONSULTATION ---
Information from patient questionnaire entered by Brittny Singh MA. I have reviewed and concur with the information entered by Brittny Singh MA. This document represents the service I personally performed and the decisions made by , Toshia Morgan ARNP. History of Present Illness Service Date and Time: 01/22/2022 0836 Previous diagnosis: Very Severe, Obstructive Sleep Apnea-Hypopnea Syndrome, Central Sleep Apnea-Hypopnea Syndrome AHI: 83.8 (in 2006) Reason for follow up: annual (last seen 12/2020) Equipment type: CPAP (ResMed) Equipment obtained from: Other ([facility]; getting supplies as needed) Mask style: Full face Backup mask available: Yes Last cushion change: last month Prior sleep studies: Yes Year and Where: 2006 - [facility] in [place], [place] HPI additional information: MICHAEL SHANE was diagnosed to have very severe, AHI 83.8, obstructive/central sleep apnea-hypopnea syndrome and returned today for CPAP therapy annual follow- up. Sleep Study - Results Prior sleep studies: Yes Year and Where: 2006 - [facility] in [place], [place] CPAP Compliance Data - Data Reviewed with Patient Average duration of nightly device use: 7 hours 47 minutes Compliance rate %: 86 (156/180 days used) Current pressure setting (cmH2O): 8-12 Average residual AHI: 1.9 Average large leak: 3.3 L/mi Compliance data discussion: There is some data corruption showing a gap in use but he states he has been using it every night. Subjective Patient concerns: reports: aerophagia (some in morning; mostly during the day - has diabetes and is on metformin), air blowing in eyes, mask leak noise (moves around a lot in the bed at night, bumps the mask), nasal congestion, dry mouth, nose, throat (does not like using humidifier, shut off), other (headache) Observed to snore while using device: No Current pressure setting perceived as: comfortable On therapy, patient: reports: sleeping better, awakening more refreshed, being more awake and alert during the day, more rested overall, other (cannot sleep without it). denies: drowsiness while driving Initial [place] Sleepiness Scale score: 18 (in 2008) Current [place] Sleepiness Scale score: 11 Allergies and Home Medications Home medication list reviewed: Yes (no changes) Allergy and home medication list: Allergies No Known Drug Allergies Allergy (Verified 02/01/14 08:19) Review of Systems Review of systems same as previous: Yes (no changes) Physical Exam Vital signs obtained and entered by: RENETTA JOINER Blood Pressure: 132/88 Cuff size: long Heart Rate: 86 O2 Saturation: 98 Height: 5 ft 2 in Weight: 226 lb 6 oz Body Mass Index: 41.3 BMI Classification: Morbidly Obese Impression and Plan 1. Obstructive/Central Sleep Apnea-Hypopnea Syndrome, very severe, with good treatment compliance and good apnea control. On CPAP therapy, the patient has better sleep quality and is more rested overall. Patient has significant improvement of his sleep apnea and is satisfied with CPAP therapy. 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 Letter completed, given to patient with his compliance/therapy report. Patient's apnea severity and rationale for treatment to reduce apnea, improve sleep quality and reduce cardiovascular and cerebrovascular events was reviewed. I also reviewed the benefit of consistent device use of CPAP for hypertension, cardiac disease and diabetes. 2. Obesity, unspecified. Currently patients BMI is 41.3. Obesity increases the risk of apnea, CPAP pressure requirements and overall health risks especially cardiovascular and diabetes. Thus patient is advised to lose weight. Weight loss can be done with reducing portion size, reducing refined foods and balancing content with vegetables, fruit and whole grain foods. In addition, patient encouraged to get regular exercise. * Continue auto CPAP pressure at 8-12 cmH2O * Letter for [employer] physical physician on compliance/therapy * Updates supplies * Notify me if snoring with mask or feeling that the pressure is too much or too little * Attempt to lose weight * Call this office if any problems using CPAP * Return for follow up in 1 year, or sooner if concerns arise Counseling Topics: Spare mask, Weight loss health impact Visit Type: In Office Time Spent with Patient (minutes): 24 Provider Statement: I spent 100% of the Face to Face Visit with the patient with greater than 50% spent counseling the patient and coordination of care.
[2022-01-22 09:16] VITALS: BP 132/88
== END 2022-01-22 08:37 | disposition home or self-care (01) ==
LOC: SC 08:36
PROVIDERS: ATTEND Nurse Practitioner Family
DX: G47.31 Primary central sleep apnea (principal); G47.33 Obstructive sleep apnea (adult) (pediatric); E66.01 Morbid (severe) obesity due to excess calories; Z68.41 Body mass index [BMI] 40.0-44.9, adult
CPT/HCPCS: 99212; 99213